=== PATIENT | male | born 1995 | race Caucasian/White ===

== ENCOUNTER 2019-01-06 09:59 | Emergency (ER) | payer SELFPAY ==
[~2019-01-06] VITALS: Ht 177.8 cm; Wt 91.1 kg
[2019-01-06 10:14] VITALS: BP 132/74
[2019-01-06 11:04] VITALS: PULSE 65; TEMP 98
== END 2019-01-06 11:05 | disposition home or self-care (01) ==
LOC: COL.ER 09:59
DX: J02.9 Acute pharyngitis, unspecified (principal); F17.210 Nicotine dependence, cigarettes, uncomplicated
CPT/HCPCS: J1100

== ENCOUNTER 2019-06-01 15:03 | Emergency (ER) | payer OTHER ==
[~2019-06-01] VITALS: Ht 180.3 cm; Wt 90.9 kg
[2019-06-01 16:00] LABS: BASO # 0.1 (0.0-0.2); BASO % 0.7 % (0.0-2.0); EOS # 0.1 (0.0-0.7); EOS % 0.7 % (0-4.0); GRAN # 6.5 (1.4-6.5); GRAN % 71.5 % (42.2-75.2); HEMATOCRIT 47.4 % (42.0-52.0); HEMOGLOBIN 15.7 g/dl (13.5-18.0); LYMPH # 1.8 (1.2-3.4); LYMPH % 20.4 % (20.0-51.0); MEAN CELL VOLUME 86 fl (80.0-100.0); MEAN CORPUSCULAR HEMOGLOBIN 29 pg (27.0-31.0); MEAN CORPUSCULAR HGB CONC 33 g/dl (33.0-37.0); MEAN PLATELET VOLUME 10.3 fl (7.4-10.4); MONO # 0.6 (0.1-0.6); MONO % 6.4 % (1.7-9.3); PLATELET COUNT 287 K/mm3 (130-400); RED BLOOD COUNT 5.49 M/mm3 (4.20-5.60); REDCELL DISTRIBUTION WIDTH-CV 13.1 % (11.5-14.5)
[2019-06-01 16:14] LABS: ACETAMINOPHEN < 10 ug/mL (10-30); ALANINE AMINOTRANSFERASE 20 U/L (21-72); ALBUMIN 4.7 gm/dL (3.5-5.0); ALCOHOL(ethanol),MEDICAL < 10 mg/dL; ALKALINE PHOSPHATASE 104 U/L (50-136); ANION GAP 10 mmol/L (7-16); AST,SGOT 51 U/L (15-37); BILIRUBIN,TOTAL 1.4 mg/dL (0.0-1.0); BLOOD UREA NITROGEN 16 mg/dL (9-20); CALCIUM 9.8 mg/dL (8.4-10.2); CARBON DIOXIDE 26 mmol/L (22-30); CHLORIDE 105 mmol/L (98-107); CREATININE, serum 0.85 (0.66-1.25); GLUCOSE 91 mg/dL (74-106); SALICYLATE < 1.0 mg/dL; SODIUM 141 mmol/L (137-145); TOTAL PROTEIN 7.8 gm/dL (6.4-8.2)
[2019-06-01 17:18] LABS: TRICYCLIC ANTIDEPRESS URINE NEGATIVE
[2019-06-01 22:05] VITALS: BP 137/72; PULSE 89; TEMP 98.1
== END 2019-06-01 22:29 | disposition home or self-care (01) ==
LOC: COL.ER 15:03
PROVIDERS: Emergency Medicine
DX: F32.9 Major depressive disorder, single episode, unspecified (principal); R45.851 Suicidal ideations; F17.210 Nicotine dependence, cigarettes, uncomplicated; F12.90 Cannabis use, unspecified, uncomplicated

== ENCOUNTER 2019-06-24 00:48 | Emergency (ER) | payer SELFPAY ==
[~2019-06-24] VITALS: Ht 177.8 cm; Wt 86.4 kg
[2019-06-24 00:55] VITALS: TEMP 99.6
[2019-06-24 01:43] VITALS: BP 135/75; PULSE 90
== END 2019-06-24 01:45 | disposition home or self-care (01) ==
LOC: COL.ER 00:48
DX: S01.81XA Laceration without foreign body of other part of head, initial encounter (principal); F17.210 Nicotine dependence, cigarettes, uncomplicated; F12.90 Cannabis use, unspecified, uncomplicated; Z23 Encounter for immunization; W22.8XXA Striking against or struck by other objects, initial encounter; Y92.009 Unspecified place in unspecified non-institutional (private) residence as the place of occurrence of the external cause

== ENCOUNTER 2019-07-14 16:04 | Emergency (ER) | payer SELFPAY ==
[~2019-07-14] VITALS: Ht 177.8 cm; Wt 90.7 kg
[2019-07-14 16:09] VITALS: TEMP 98.3
[2019-07-14 16:52] LABS: HEMATOCRIT 46.8 % (42.0-52.0); MEAN CELL VOLUME 84 fl (80.0-100.0); MEAN CORPUSCULAR HEMOGLOBIN 29 pg (27.0-31.0); MEAN CORPUSCULAR HGB CONC 34 g/dl (33.0-37.0); MEAN PLATELET VOLUME 10.3 fl (7.4-10.4); PLATELET COUNT 376 K/mm3 (130-400); RED BLOOD COUNT 5.57 M/mm3 (4.20-5.60); REDCELL DISTRIBUTION WIDTH-CV 13.1 % (11.5-14.5)
[2019-07-14 17:05] LABS: ALANINE AMINOTRANSFERASE 35 U/L (21-72); ALBUMIN 5.1 gm/dL (3.5-5.0); ALKALINE PHOSPHATASE 167 U/L (50-136); ANION GAP 18 mmol/L (7-16); AST,SGOT 57 U/L (15-37); BILIRUBIN,TOTAL 1.1 mg/dL (0.0-1.0); BLOOD UREA NITROGEN 13 mg/dL (9-20); CALCIUM 10.5 mg/dL (8.4-10.2); CARBON DIOXIDE 19 mmol/L (22-30); CHLORIDE 106 mmol/L (98-107); CREATININE, serum 0.95 (0.66-1.25); GLUCOSE 117 mg/dL (74-106); POTASSIUM 3.7 mmol/L (3.4-5.0); SODIUM 142 mmol/L (137-145); TOTAL PROTEIN 8.8 gm/dL (6.4-8.2)
[2019-07-14 17:08] LABS: ACETAMINOPHEN < 10 ug/mL (10-30); ALCOHOL(ethanol),MEDICAL < 10 mg/dL; SALICYLATE < 1.0 mg/dL
[2019-07-14 17:31] LABS: LYMPHOCYTE 9 % (20.0-51.0); NEUTROPHILS 80 % (42.0-75.2)
[2019-07-14 17:32] LABS: BAND 8 % (0-10); PLATELET ESTIMATE NORMAL (NORMAL)
[2019-07-14 18:46] LABS: COLLECTION METHOD CLEAN CATCH
[2019-07-14 18:57] LABS: MUCOUS Present /lpf; PH 7 (5-8); SQUAMOUS EPITHELIAL 0-2 /hpf; URINE APPEARANCE Clear; URINE BACTERIA Rare /hpf; URINE BILIRUBIN Negative (NEGATIVE); URINE BLOOD Negative (NEGATIVE); URINE COLOR Yellow; URINE GLUCOSE Negative (NEGATIVE); URINE KETONE 1+ (NEGATIVE); URINE LEUKOCYTE ESTERASE Negative (NEGATIVE); URINE NITRATE Negative (NEGATIVE); URINE PROTEIN(semi-quant) 1+ (NEGATIVE); URINE RBC 0-2 /hpf; URINE UROBILINOGEN Negative (NEGATIVE); URINE WBC 0-2 /hpf
[2019-07-14 19:05] LABS: INR 0.9 (0.8-3.0); PROTHROMBIN TIME 9.9 SECONDS (9.7-12.8)
[2019-07-14 19:07] LABS: PARTIAL THROMBOPLASTIN TIME 31.8 SECONDS (26.0-37.0)
[2019-07-14 19:10] LABS: TRICYCLIC ANTIDEPRESS URINE POSITIVE
[2019-07-14 21:10] VITALS: BP 139/79; PULSE 81
== END 2019-07-14 21:10 | disposition short-term general hospital (02) ==
LOC: COL.ER 16:04
PROVIDERS: Emergency Medicine
DX: S22.080A Wedge compression fracture of T11-T12 vertebra, initial encounter for closed fracture (principal); S00.83XA Contusion of other part of head, initial encounter; S20.219A Contusion of unspecified front wall of thorax, initial encounter; S30.1XXA Contusion of abdominal wall, initial encounter; R45.851 Suicidal ideations; F32.9 Major depressive disorder, single episode, unspecified; R40.2410 Glasgow coma scale score 13-15, unspecified time; V47.5XXA Car driver injured in collision with fixed or stationary object in traffic accident, initial encounter
CPT/HCPCS: J3010; J7030; Q9967